=== PATIENT | female | born 1995 | race Caucasian/White ===

== ENCOUNTER 2019-03-05 11:38 | Emergency (ER) | payer BC ==
[~2019-03-05] VITALS: Ht 165.1 cm; Wt 65.8 kg
== END 2019-03-05 13:51 | disposition home or self-care (01) ==
LOC: ER 11:38
DX: N39.0 Urinary tract infection, site not specified (principal); B96.0 Mycoplasma pneumoniae [M. pneumoniae] as the cause of diseases classified elsewhere